=== PATIENT | female | born 1980 | race Caucasian/White ===

== ENCOUNTER 2016-09-10 19:31 | Emergency (ER) | payer BC, OTHER ==
[2016-09-10 19:38] VITALS: BP 127/105
[2016-09-10] MEDS ORDERED: HYDROmorphone 1 MG/ML Syringe IVPUSH ONE ×2 (19:38→20:03)
[2016-09-10] MEDS ORDERED: Ondansetron 4 MG/2 ML SDV IVPUSH ONE (19:38)
[2016-09-10] MEDS ORDERED: Ketorolac 30 MG/ML SDV IVPUSH ONE (19:38)
--- NOTE | 2016-09-10 19:44 | EDM.PDOC ---
ED HPI GENERAL MEDICAL PROBLEM - General Chief Complaint: Back Pain or Injury Stated Complaint: PAIN Time Seen by Provider: 09/10/16 19:33 Source of Information: Reports: Patient History Limitations: Reports: No Limitations - History of Present Illness INITIAL COMMENTS - FREE TEXT/NARRATIVE: This is a 36-year-old female. She had sudden onset of left flank pain about one hour prior to coming to the ER. She denies any nausea or vomiting no diarrhea. No recent history of urinary symptoms no blood in her urine. She describes the pain as being in the left flank radiating all the way down into her pelvis and she has the urge to urinate but she doesn't seem to be able to. The pain is been very severe and has incapacitated her. She has no history of kidney stones she has no history of diverticulitis. She denies any recent illnesses fever chills cough or congestion. 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 Hematologic History: Reports: None Immunologic History: Reports: None Oncologic (Cancer) History: Reports: None Dermatologic History: Reports: None - Past Surgical History HEENT Surgical History: Reports: Oral Surgery, Other (See Below) Musculoskeletal Surgical History: Reports: Other (See Below) Social & Family History - Tobacco Use Smoking Status *Q: Current Every Day Smoker Years of Tobacco use: 5 Packs/Tins Daily: 0.5 - Recreational Drug Use Recreational Drug Use: No Drug Use in Last 12 Months: No ED ROS GENERAL - Review of Systems Review Of Systems: See Below Constitutional: Denies: Fever, Chills HEENT: Reports: No Symptoms Respiratory: Reports: No Symptoms Cardiovascular: Reports: No Symptoms Endocrine: Reports: No Symptoms GI/Abdominal: Reports: Abdominal Pain. Denies: Diarrhea, Nausea, Vomiting : Reports: Flank Pain Musculoskeletal: Reports: No Symptoms Skin: Reports: No Symptoms Neurological: Reports: No Symptoms Psychiatric: Reports: No Symptoms Hematologic/Lymphatic: Reports: No Symptoms ED EXAM,LOWER BACK PAIN/INJURY - Physical Exam Exam: See Below Exam Limited By: No Limitations General Appearance: Alert, WD/WN, Moderate Distress Eye Exam: Bilateral Eye: Normal Inspection Ears: Normal External Exam Nose: Normal Inspection Throat/Mouth: Normal Inspection, Normal Lips, Normal Voice Head: Normocephalic Neck: Supple Respiratory/Chest: No Respiratory Distress, Lungs Clear, Normal Breath Sounds Cardiovascular: Regular Rate, Rhythm, No Murmur GI/Abdominal: Other (Some left flank pain going into the left lower quadrant, no masses felt no rebound noted though she is tender, no peritoneal signs noted , bowel sounds are absent in all 4 quadrants, there is no right-sided symptoms whatsoever) Back Exam: Full Range of Motion Extremities: Normal Inspection, Normal Range of Motion Neurological: Alert, Oriented x 3 Psychiatric: Anxious, Tearful Skin Exam: Warm, Dry Course - Vital Signs Last Recorded V/S: Last Vital Signs Temp 97.5 F 09/10/16 19:34 Pulse 98 09/10/16 19:34 Resp 16 09/10/16 19:34 BP 127/105 H 09/10/16 19:34 Pulse Ox 98 09/10/16 19:34 - Orders/Labs/Meds Orders: Active Orders 24 hr Category Date Time Status Abdomen Pelvis wo Cont [CT] Stat Exams 09/10/16 20:17 Taken Sodium Chloride 0.9% [Normal Saline] 1,000 ml Med 09/10/16 19:45 Active IV ASDIRECTED Sodium Chloride 0.9% [Normal Saline] 1,000 ml Med 09/10/16 21:15 Active IV ASDIRECTED Medication Orders Sodium Chloride (Normal Saline) 1,000 mls @ 1,000 mls/hr IV ASDIRECTED KAT Last Admin: 09/10/16 19:44 Dose: 1,000 mls/hr Sodium Chloride (Normal Saline) 1,000 mls @ 999 mls/hr IV ASDIRECTED [facility] Labs: Laboratory Tests 09/10/16 09/10/16 09/10/16 Range/Units 19:40 19:40 19:40 WBC 9.88 (3.98-10.04) K/mm3 RBC 4.24 (3.98-5.22) M/mm3 Hgb 13.2 (11.2-15.7) gm/L Hct 39.6 (34.1-44.9) % MCV 93.4 (79.4-94.8) fl MCH 31.1 (25.6-32.2) pg MCHC 33.3 (32.2-35.5) g/dl RDW Std Deviation 44.2 (36.4-46.3) fL Plt Count 338 (182-369) K/mm3 MPV 9.3 L (9.4-12.3) fl Neut % (Auto) 53.2 (34.0-71.1) % Lymph % (Auto) 32.8 (19.3-51.7) % [place] % (Auto) 10.8 (4.7-12.5) % Eos % (Auto) 2.7 (0.7-5.8) Baso % (Auto) 0.3 (0.1-1.2) % Neut # (Auto) 5.25 (1.56-6.13) K/mm3 Lymph # (Auto) 3.24 (1.18-3.74) K/mm3 [place] # (Auto) 1.07 H (0.24-0.36) K/mm3 Eos # (Auto) 0.27 (0.04-0.36) K/mm3 Baso # (Auto) 0.03 (0.01-0.08) K/mm3 Sodium 142 (136-145) mEq/L Potassium 3.9 (3.5-5.1) mEq/L Chloride 107 (98-107) mEq/L Carbon Dioxide 22 (21-32) mEq/L Anion Gap 16.9 H (5-15) BUN 15 (7-18) mg/dL Creatinine 1.0 (0.55-1.02) mg/dL Est Cr Clr Drug Dosing 76.36 mL/min Estimated GFR (MDRD) > 60 (>60) mL/min BUN/Creatinine Ratio 15.0 (14-18) Glucose 116 H (74-106) mg/dL Calcium 8.9 (8.5-10.1) mg/dL Total Bilirubin 0.7 (0.2-1.0) mg/dL AST 11 L (15-37) U/L ALT 18 (14-59) U/L Alkaline Phosphatase 86 (46-116) U/L Total Protein 7.6 (6.4-8.2) g/dl Albumin 3.8 (3.4-5.0) g/dl Globulin 3.8 gm/dL Albumin/Globulin Ratio 1.0 (1-2) HCG, Qual Negative (NEGATIVE) Urine Color (Yellow) Urine Appearance (Clear) Urine pH (5.0-8.0) Ur Specific [place] (1.005-1.030) Urine Protein (Negative) Urine Glucose (UA) (Negative) Urine Ketones (Negative) Urine Occult Blood (Negative) Urine Nitrite (Negative) Urine Bilirubin (Negative) Urine Urobilinogen (0.2-1.0) Ur Leukocyte Esterase (Negative) Urine RBC (0-5) /hpf Urine WBC (0-5) /hpf Ur Epithelial Cells (0-5) /hpf Urine Bacteria (FEW) /hpf Urine Mucus (FEW) /hpf 09/10/16 Range/Units 20:38 WBC (3.98-10.04) K/mm3 RBC (3.98-5.22) M/mm3 Hgb (11.2-15.7) gm/L Hct (34.1-44.9) % MCV (79.4-94.8) fl MCH (25.6-32.2) pg MCHC (32.2-35.5) g/dl RDW Std Deviation (36.4-46.3) fL Plt Count (182-369) K/mm3 MPV (9.4-12.3) fl Neut % (Auto) (34.0-71.1) % Lymph % (Auto) (19.3-51.7) % [place] % (Auto) (4.7-12.5) % Eos % (Auto) (0.7-5.8) Baso % (Auto) (0.1-1.2) % Neut # (Auto) (1.56-6.13) K/mm3 Lymph # (Auto) (1.18-3.74) K/mm3 [place] # (Auto) (0.24-0.36) K/mm3 Eos # (Auto) (0.04-0.36) K/mm3 Baso # (Auto) (0.01-0.08) K/mm3 Sodium (136-145) mEq/L Potassium (3.5-5.1) mEq/L Chloride (98-107) mEq/L Carbon Dioxide (21-32) mEq/L Anion Gap (5-15) BUN (7-18) mg/dL Creatinine (0.55-1.02) mg/dL Est Cr Clr Drug Dosing mL/min Estimated GFR (MDRD) (>60) mL/min BUN/Creatinine Ratio (14-18) Glucose (74-106) mg/dL Calcium (8.5-10.1) mg/dL Total Bilirubin (0.2-1.0) mg/dL AST (15-37) U/L ALT (14-59) U/L Alkaline Phosphatase (46-116) U/L Total Protein (6.4-8.2) g/dl Albumin (3.4-5.0) g/dl Globulin gm/dL Albumin/Globulin Ratio (1-2) HCG, Qual (NEGATIVE) Urine Color Yellow (Yellow) Urine Appearance Slt cloudy H (Clear) Urine pH 6.0 (5.0-8.0) Ur Specific [place] > or = 1.030 (1.005-1.030) Urine Protein 2+ H (Negative) Urine Glucose (UA) Negative (Negative) Urine Ketones Negative (Negative) Urine Occult Blood 3+ H (Negative) Urine Nitrite Negative (Negative) Urine Bilirubin Negative (Negative) Urine Urobilinogen 0.2 (0.2-1.0) Ur Leukocyte Esterase Negative (Negative) Urine RBC >100 H (0-5) /hpf Urine WBC 0-5 (0-5) /hpf Ur Epithelial Cells 5-10 H (0-5) /hpf Urine Bacteria Moderate H (FEW) /hpf Urine Mucus Moderate H (FEW) /hpf Meds: Medications Generic Name Dose Route Start Last Admin Trade Name Freq PRN Reason Stop Dose Admin Sodium Chloride 1,000 mls @ 1,000 mls/hr 09/10/16 19:45 09/10/16 19:44 Normal Saline IV 1,000 mls/hr ASDIRECTED KAT Administration Sodium Chloride 1,000 mls @ 999 mls/hr 09/10/16 21:15 Normal Saline IV ASDIRECTED KAT Discontinued Medications Generic Name Dose Route Start Last Admin Trade Name Freq PRN Reason Stop Dose Admin Hydromorphone HCl 1 mg 09/10/16 19:38 09/10/16 19:45 Dilaudid IVPUSH 09/10/16 19:39 1 mg ONETIME ONE Administration Hydromorphone HCl 1 mg 09/10/16 20:03 09/10/16 20:08 Dilaudid IVPUSH 09/10/16 20:04 1 mg ONETIME ONE Administration Ketorolac Tromethamine 30 mg 09/10/16 19:38 09/10/16 19:46 Toradol IVPUSH 09/10/16 19:39 30 mg ONETIME ONE Administration Ondansetron HCl 4 mg 09/10/16 19:38 09/10/16 19:44 Zofran IVPUSH 09/10/16 19:39 4 mg ONETIME ONE Administration - Radiology Interpretation Free Text/Narrative:: ED scan of the abdomen shows a 6 mm stone at the ureteral vesicle junction with hydroureter on the left side. - Re-Assessments/Exams Free Text/Narrative Re-Assessment/Exam: 09/10/16 22:00 Spoke to the patient regarding her lab results and CT scan results. I've arranged for her to call Dr. Jorge Johnson on Monday to arrange for appointment and be seen in [place] for possible extraction of the stone if it doesn't pass on its own. Departure - Departure Time of Disposition: 22:00 Disposition: Home, Self-Care 01 Condition: Good Clinical Impression: Left ureteral stone, Renal colic on left side - Discharge Information Prescriptions: Ondansetron [Zofran ODT] 4 mg PO Q6H PRN #15 tab.dis PRN Reason: Nausea oxyCODONE HCl/Acetaminophen [Percocet 5-325 mg Tablet] 1 each PO Q6H PRN #15 tablet PRN Reason: Pain Forms: ED Department Discharge Additional Instructions: Continue to drink lots of fluids. Avoid tea and coffee, take the medicine for pain and nausea as needed, if the pain gets to be excruciating and the medicines aren't helping return to the ER, called Dr. Jorge Johnson's office on Monday he has urinated name and the situation with his quality assurance monitor chassis service, his number is [phone], return to this ER as needed - My Orders Last 24 Hours: My Active Orders 09/10/16 19:45 Sodium Chloride 0.9% [Normal Saline] 1,000 ml IV ASDIRECTED 09/10/16 20:17 Abdomen Pelvis wo Cont [CT] Stat 09/10/16 21:15 Sodium Chloride 0.9% [Normal Saline] 1,000 ml IV ASDIRECTED - Assessment/Plan Last 24 Hours: My Active Orders 09/10/16 19:45 Sodium Chloride 0.9% [Normal Saline] 1,000 ml IV ASDIRECTED 09/10/16 20:17 Abdomen Pelvis wo Cont [CT] Stat 09/10/16 21:15 Sodium Chloride 0.9% [Normal Saline] 1,000 ml IV ASDIRECTED
[2016-09-10] MEDS ORDERED: Sodium Chloride 0.9% 1,000 ML IV SCH ×2 (19:45→21:15)
--- NOTE | 2016-09-12 08:10 | CT ---
CT abdomen and pelvis Technique: Multiple axial sections were obtained from above the kidneys inferiorly to the pubic symphysis. Intravenous and oral contrast was not utilized. Study has been performed as a ureteral stone protocol. Comparison: No previous abdominal imaging. Findings: Kidneys show no abnormal calcifications. Left kidney shows mildly dilated ureter. This is due to an obstructing 6 mm stone within the distal left ureter slightly proximal to the UVJ. No other abnormal calcifications are seen along the course of the ureters. Visualized portions of the noncontrast liver and spleen appear unremarkable. Adrenal glands show no nodule. Gallbladder shows no calcified gallstones. Pancreas appears within normal limits for noncontrast exam. Aorta shows no aneurysmal dilatation. No retroperitoneal adenopathy or mesenteric abnormalities are seen. Appendix is seen which appears normal. No pelvic mass or adenopathy is seen. No free fluid or inflammatory change is identified. No bowel dilatation is seen. Mild increased stool is noted within the colon. Bone window settings were reviewed which appear within normal limits for the patient's age. Impression: 1. Mild left-sided ureteral dilatation secondary to an obstructing stone within the distal left ureter measuring approximately 6 mm and located slightly proximal to the UVJ. No abnormal calcifications are seen within the kidneys. 2. Mild increased stool is noted within the colon. 3. Other normal findings as described above Diagnostic code #3 Agree with preliminary report issued by [employer] ([employer] report dictated on 09/10/16, 10:07 PM Central Time)
== END 2016-09-10 22:46 | disposition home or self-care (01) ==
LOC: JD.ED 19:31
DX: N20.1 Calculus of ureter (principal); N23 Unspecified renal colic; G43.909 Migraine, unspecified, not intractable, without status migrainosus; E66.9 Obesity, unspecified; F17.210 Nicotine dependence, cigarettes, uncomplicated; Z68.31 Body mass index [BMI] 31.0-31.9, adult
CPT/HCPCS: 36415; 74176; 80053; 81001; 84703; 85025; 96361; 96374; 96375; 99284; J1170; J1885; J2405; J7040

== ENCOUNTER 2016-09-11 09:43 | Inpatient (IN) | payer BC ==
[2016-09-11] MEDS ORDERED: Ketorolac 30 MG/ML SDV IVPUSH ONE (10:18)
[2016-09-11] MEDS ORDERED: HYDROmorphone 1 MG/ML Syringe IVPUSH ONE (10:18)
[2016-09-11] MEDS ORDERED: Ondansetron 4 MG/2 ML SDV IVPUSH ONE (10:18)
[2016-09-11] MEDS ORDERED: Sodium Chloride 0.9% 1,000 ML IV ONE ×2 (10:18→11:53)
[2016-09-11] MEDS ORDERED: LORazepam 2 MG/ML MDV IVPUSH ONE (10:27)
--- NOTE | 2016-09-11 10:51 | EDM.PDOC ---
ED HPI GENERAL MEDICAL PROBLEM - General Chief Complaint: Genitourinary Problem Stated Complaint: POSS. KIDNEY STONE Time Seen by Provider: 09/11/16 09:49 Source of Information: Reports: Patient History Limitations: Reports: No Limitations - History of Present Illness INITIAL COMMENTS - FREE TEXT/NARRATIVE: The patient is a 36-year-old female who presents with severe left flank and abdominal pain. She was in the emergency department last night with similar pain and at that time was diagnosed with a 6 mm UVJ renal stone. She was discharged with Percocet and Zofran. She states that she's had severe pain all night. States the Percocet has not been helping. She last took Percocet at approximately 8:00 this morning. One episode of vomiting last night. States pain is in the left flank and left lower abdomen, sharp, constant, very severe, no relieving factors. States that she had been urinating but currently feels unable to urinate. Denies hematuria or pain with urination. No fever. No additional complaint. States that she was unable to sleep all night due to the severity of her pain. 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 Hematologic History: Reports: None Immunologic History: Reports: None Oncologic (Cancer) History: Reports: None Dermatologic History: Reports: None - Past Surgical History Head Surgeries/Procedures: Reports: None HEENT Surgical History: Reports: Oral Surgery, Other (See Below) Musculoskeletal Surgical History: Reports: Other (See Below) Social & Family History - Family History Family Medical History: Noncontributory - Tobacco Use Smoking Status *Q: Current Every Day Smoker Years of Tobacco use: 15 Packs/Tins Daily: 0.5 - Caffeine Use Caffeine Use: Reports: None - Recreational Drug Use Recreational Drug Use: No Drug Use in Last 12 Months: No ED ROS GENERAL - Review of Systems Review Of Systems: See Below Constitutional: Denies: Fever HEENT: Reports: No Symptoms Respiratory: Denies: Shortness of Breath Cardiovascular: Reports: No Symptoms Endocrine: Reports: No Symptoms GI/Abdominal: Reports: Abdominal Pain : Reports: Flank Pain Musculoskeletal: Reports: No Symptoms Skin: Reports: No Symptoms Neurological: Reports: No Symptoms Psychiatric: Reports: No Symptoms ED EXAM, RENAL/ - Physical Exam Exam: See Below Exam Limited By: No Limitations General Appearance: Alert, Anxious, Severe Distress Eye Exam: Bilateral Eye: Normal Inspection Ears: Normal External Exam Nose: Normal Inspection Throat/Mouth: Normal Inspection, Normal Voice, No Airway Compromise Head: Atraumatic, Normocephalic Neck: Normal Inspection, Supple, Non-Tender, Full Range of Motion Respiratory/Chest: No Respiratory Distress, Lungs Clear, Normal Breath Sounds, No Accessory Muscle Use, Chest Non-Tender Cardiovascular: Normal Peripheral Pulses, Regular Rate, Rhythm, No Murmur GI/Abdominal: Soft, No Distention, Other (Left lower quadrant tenderness, no rebound or guarding) Back Exam: Normal Inspection, CVA Tenderness (L). No: CVA Tenderness (R) Extremities: Normal Inspection Neurological: Alert, Oriented, Normal Cognition, No Motor/Sensory Deficits Psychiatric: Normal Affect, Normal Mood Skin Exam: Warm, Dry, Intact, Normal Color, No Rash Course - Vital Signs Last Recorded V/S: Last Vital Signs Temp 36.8 C 09/11/16 09:48 Pulse 78 09/11/16 09:48 Resp BP Pulse Ox 99 09/11/16 09:48 - Orders/Labs/Meds Orders: Active Orders 24 hr Category Date Time Status HYDROmorphone [Dilaudid] Med 09/11/16 11:11 Active 1 mg IVPUSH Q1H PRN Medication Orders Hydromorphone HCl (Dilaudid) 1 mg IVPUSH Q1H PRN PRN Reason: Pain Labs: Laboratory Tests 09/11/16 09/11/16 09/11/16 Range/Units 10:40 10:40 12:40 WBC 7.10 (3.98-10.04) K/mm3 RBC 4.00 (3.98-5.22) M/mm3 Hgb 12.1 (11.2-15.7) gm/L Hct 37.7 (34.1-44.9) % MCV 94.3 (79.4-94.8) fl MCH 30.3 (25.6-32.2) pg MCHC 32.1 L (32.2-35.5) g/dl RDW Std Deviation 44.3 (36.4-46.3) fL Plt Count 299 (182-369) K/mm3 MPV 9.6 (9.4-12.3) fl Neut % (Auto) 60.3 (34.0-71.1) % Lymph % (Auto) 27.9 (19.3-51.7) % [place] % (Auto) 9.9 (4.7-12.5) % Eos % (Auto) 1.5 (0.7-5.8) Baso % (Auto) 0.3 (0.1-1.2) % Neut # (Auto) 4.28 (1.56-6.13) K/mm3 Lymph # (Auto) 1.98 (1.18-3.74) K/mm3 [place] # (Auto) 0.70 H (0.24-0.36) K/mm3 Eos # (Auto) 0.11 (0.04-0.36) K/mm3 Baso # (Auto) 0.02 (0.01-0.08) K/mm3 Sodium 141 (136-145) mEq/L Potassium 3.8 (3.5-5.1) mEq/L Chloride 110 H (98-107) mEq/L Carbon Dioxide 21 (21-32) mEq/L Anion Gap 13.8 (5-15) BUN 16 (7-18) mg/dL Creatinine 1.0 (0.55-1.02) mg/dL Est Cr Clr Drug Dosing TNP Estimated GFR (MDRD) > 60 (>60) mL/min BUN/Creatinine Ratio 16.0 (14-18) Glucose 87 (74-106) mg/dL Calcium 8.4 L (8.5-10.1) mg/dL Total Bilirubin 1.0 (0.2-1.0) mg/dL AST 13 L (15-37) U/L ALT 17 (14-59) U/L Alkaline Phosphatase 71 (46-116) U/L Total Protein 6.7 (6.4-8.2) g/dl Albumin 3.3 L (3.4-5.0) g/dl Globulin 3.4 gm/dL Albumin/Globulin Ratio 1.0 (1-2) Urine Color Yellow (Yellow) Urine Appearance Slt cloudy H (Clear) Urine pH 5.5 (5.0-8.0) Ur Specific [place] > or = 1.030 (1.005-1.030) Urine Protein Negative (Negative) Urine Glucose (UA) Negative (Negative) Urine Ketones Negative (Negative) Urine Occult Blood 2+ H (Negative) Urine Nitrite Negative (Negative) Urine Bilirubin Negative (Negative) Urine Urobilinogen 0.2 (0.2-1.0) Ur Leukocyte Esterase Trace H (Negative) Urine RBC 10-20 H (0-5) /hpf Urine WBC 5-10 H (0-5) /hpf Ur Epithelial Cells 0-5 (0-5) /hpf Amorphous Sediment Moderate H (NOT SEEN) /hpf Urine Bacteria Few (FEW) /hpf Urine Mucus Few (FEW) /hpf Meds: Medications Generic Name Dose Route Start Last Admin Trade Name Freq PRN Reason Stop Dose Admin Hydromorphone HCl 1 mg 09/11/16 11:11 Dilaudid IVPUSH Q1H PRN Pain Discontinued Medications Generic Name Dose Route Start Last Admin Trade Name Freq PRN Reason Stop Dose Admin Hydromorphone HCl 1 mg 09/11/16 10:18 09/11/16 10:28 Dilaudid IVPUSH 09/11/16 10:19 1 mg ONETIME ONE Administration Sodium Chloride 1,000 mls @ 1,000 mls/hr 09/11/16 10:18 09/11/16 10:26 Normal Saline IV 09/11/16 11:17 1,000 mls/hr ONETIME ONE Administration Sodium Chloride 1,000 mls @ 999 mls/hr 09/11/16 11:53 09/11/16 12:05 Normal Saline IV 09/11/16 12:53 999 mls/hr ONETIME ONE Administration Ketorolac Tromethamine 30 mg 09/11/16 10:18 09/11/16 10:27 Toradol IVPUSH 09/11/16 10:19 30 mg ONETIME ONE Administration Lorazepam 1 mg 09/11/16 10:27 09/11/16 10:34 Ativan IVPUSH 09/11/16 10:28 1 mg ONETIME ONE Administration Ondansetron HCl 4 mg 09/11/16 10:18 09/11/16 10:26 Zofran IVPUSH 09/11/16 10:19 4 mg ONETIME ONE Administration Pneumococcal Polyvalent Vaccine 0.5 ml 09/11/16 14:38 Pneumovax 23 IM 09/11/16 14:39 .ONCE ONE - Re-Assessments/Exams Free Text/Narrative Re-Assessment/Exam: 09/11/16 11:32 Feeling better after dilaudid, toradol, and ativan, but still has significant pain. Requesting more meds but has some respiratory depression with SpO2 86 - 90, will monitor. Awaiting urine sample, she feels like she can urinate now. 09/11/16 13:19 Patient voided 100cc. [place] strong need to void more. Nurses placed hughes, output very small. UA returns and shows high specific gravity. Doubt actual urinary obstruction, patient more likely quite dehydrated. She needs to be admitted for pain control, nausea control, and hydration. No evidence of infection on UA. Renal function normal. So no indication for urological intervention over the weekend. We don't have urology here but we can hydrate and control her symptoms. Patient would prefer to be admitted here if possible. I explained that she may need to be transferred at some point if there is need for urological intervention. She understood. Discussed with Dr. Mora who agrees to admit the patient. Departure - Departure Time of Disposition: 13:26 Disposition: Admitted As Inpatient 67 Clinical Impression: Ureteral stone, Moderate dehydration Vomiting Qualifiers: Vomiting type: unspecified Vomiting Intractability: intractable Nausea presence : with nausea Qualified Code(s): R11.2 - Nausea with vomiting, unspecified Abdominal pain Qualifiers: Abdominal location: left lower quadrant Qualified Code(s): R10.32 - Left lower quadrant pain - Discharge Information - My Orders Last 24 Hours: My Active Orders 09/11/16 11:11 HYDROmorphone [Dilaudid] 1 mg IVPUSH Q1H PRN - Assessment/Plan Last 24 Hours: My Active Orders 09/11/16 11:11 HYDROmorphone [Dilaudid] 1 mg IVPUSH Q1H PRN
[2016-09-11] MEDS ORDERED: HYDROmorphone 1 MG/ML Syringe IVPUSH PRN (11:11)
[2016-09-11] MEDS ORDERED: Pneumococcal Polyvalent-23 Vaccine 0.5 ML SDV IM ONE (14:38)
[2016-09-11] MEDS ORDERED: Ondansetron 4 MG/2 ML SDV IVPUSH PRN (15:08)
[2016-09-11] MEDS ORDERED: Promethazine 12.5 MG in Sodium Chloride 0.9% 50 ML IV PRN (15:09)
[2016-09-11] MEDS ORDERED: Temazepam 15 MG Cap PO PRN (15:16)
--- NOTE | 2016-09-11 15:30 | PCM.HP ---
H&P History of Present Illness - General Date of Service: 09/11/16 Admit Problem/Dx: Admission Diagnosis/Problem Admission Diagnosis/Problem Dehydration Source of Information: Patient, Family, Provider History Limitations: Reports: No Limitations - History of Present Illness Initial Comments - Free Text/Narative: 33 year old female who was seen at 1900 hour last night was diagnosed with renal calculus at the left ureteral vesicle junction with subsequent hydroureter. She admits to sharp pelvis pain and back pain, left flankHas a sense of urinary urgency. Nausea without vomiting and a loss of appetite. Has never had kidney stones; had minimal relief with percocet prescribed last night. Has a sense of urinary urgency. A hughes cath has been placed in the ED , the patient request removal. Pyridium will be used for dysuria and frequency. Originally the patient was to have called urologist, Dr Jorge Johnson. This will be arranged at the time of DC. Onset of Symptoms: Reports: Sudden Symptom Onset Date: 09/10/16 Duration of Symptoms: Reports: Hour(s):, Getting Worse Location: Reports: Abdomen, Back Quality: Reports: Same as Previous Episode, Sharp Severity: Moderate Improves with: Reports: Medication Worsens with: Reports: None Associated Symptoms: Reports: Loss of Appetite, Malaise, Nausea/Vomiting Left Flank Pain Score (Numeric/FACES): 10 - Related Data Allergies/Adverse Reactions: Allergies Allergy/AdvReac Type Severity Reaction Status Date / Time No Known Allergies Allergy Verified 09/11/16 14:39 Home Medications: Home Meds Ondansetron [Zofran ODT] 4 mg PO Q6H PRN #15 tab.dis 09/10/16 [Rx] oxyCODONE HCl/Acetaminophen [Percocet 5-325 mg Tablet] 1 - 2 each PO Q6H PRN [History] Past Medical History HEENT History: Reports: None Cardiovascular History: Reports: None Respiratory History: Reports: None Gastrointestinal History: Reports: None Genitourinary History: Reports: Renal Calculus 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 Hematologic History: Reports: None Immunologic History: Reports: None Oncologic (Cancer) History: Reports: None Dermatologic History: Reports: None - Infectious Disease History Infectious Disease History: Reports: Chicken Pox - Past Surgical History Head Surgeries/Procedures: Reports: None HEENT Surgical History: Reports: Oral Surgery, Other (See Below) Musculoskeletal Surgical History: Reports: Other (See Below) Social & Family History - Family History Family Medical History: Noncontributory - Tobacco Use Smoking Status *Q: Current Every Day Smoker Years of Tobacco use: 15 Packs/Tins Daily: 0.5 Used Tobacco, but Quit: No Second Hand Smoke Exposure: Yes - Caffeine Use Caffeine Use: Reports: None - Recreational Drug Use Recreational Drug Use: No Drug Use in Last 12 Months: No H&P Review of Systems - Review of Systems: Review Of Systems: See Below General: Reports: Malaise, Weakness HEENT: Reports: No Symptoms Pulmonary: Reports: No Symptoms Cardiovascular: Reports: No Symptoms Gastrointestinal: Reports: Abdominal Pain, Decreased Appetite Genitourinary: Reports: Frequency Musculoskeletal: Reports: Back Pain Skin: Reports: No Symptoms Psychiatric: Reports: No Symptoms Neurological: Reports: No Symptoms Hematologic/Lymphatic: Reports: No Symptoms Immunologic: Reports: No Symptoms Exam - Exam Exam: See Below - Vital Signs Vital Signs: Last Vital Signs Temp 36.8 C 09/11/16 09:48 Pulse 78 09/11/16 09:48 Resp BP Pulse Ox 99 09/11/16 09:48 Weight: 90.718 kg - Exam Quality Assessment: DVT Prophylaxis General: Alert, Oriented, Cooperative, Mild Distress HEENT: Conjunctiva Clear, Nares Patent, Normal Nasal Septum, Pupils Equal, Pupils Reactive, PERRLA Neck: Supple, Trachea Midline Lungs: Clear to Auscultation, Normal Respiratory Effort Cardiovascular: Regular Rate, Regular Rhythm Abdomen: Normal Bowel Sounds, Soft (Female) Exam: Deferred Rectal (Female) Exam: Deferred Back Exam: Normal Inspection Extremities: Normal Inspection Skin: Warm Neurological: Cranial Nerves Intact, Normal Gait, Normal Speech Neuro Extensive - Mental Status: Alert, Oriented x3, Normal Mood/Affect, Normal Cognition, Memory Intact Neuro Extensive - Motor, Sensory, Reflexes: CN II-XII Intact Psychiatric: Alert, Normal Affect, Normal Mood - Patient Data Result Diagrams: 09/11/16 10:40 09/11/16 10:40 *Q Meaningful Use (ADM) - VTE *Q VTE Criteria *Q: - Stroke *Q Stroke Criteria *Q: - AMI *Q AMI Criteria *Q: - Problem List (1) Abdominal pain SNOMED Code(s): 91048348 ICD Code: R10.9 - UNSPECIFIED ABDOMINAL PAIN Status: Acute Current Visit : Yes Qualifiers: Abdominal location: left lower quadrant Qualified Code(s): R10.32 - Left lower quadrant pain (2) Moderate dehydration SNOMED Code(s): 3141286530569 ICD Code: E86.0 - DEHYDRATION Status: Acute Current Visit: Yes (3) Ureteral stone SNOMED Code(s): 73013660 ICD Code: N20.1 - CALCULUS OF URETER Status: Acute Current Visit: Yes (4) Vomiting SNOMED Code(s): 521220196 ICD Code: R11.10 - VOMITING, UNSPECIFIED Status: Acute Current Visit: Yes Qualifiers: Vomiting type: unspecified Vomiting Intractability: intractable Nausea presence: with nausea Qualified Code(s): R11.2 - Nausea with vomiting, unspecified (5) Left ureteral stone SNOMED Code(s): 31538435 ICD Code: N20.1 - CALCULUS OF URETER Status: Acute Current Visit: No (6) Renal colic on left side SNOMED Code(s): 7733884 ICD Code: N23 - UNSPECIFIED RENAL COLIC Status: Acute Current Visit: No Problem List Initiated/Reviewed/Updated: Yes Orders Last 24hrs: Active Orders 24 hr Category Date Time Status Activity as Tolerated [RC] .Routine Care 09/11/16 15:05 Ordered Antiembolic Devices [RC] PER UNIT ROUTINE Care 09/11/16 15:06 Ordered Hughes Catheter Insertion [Insert Urinary Catheter] [OM. Care 09/11/16 15:00 Ordered PC] Q24H Strain Urine [RC] ASDIRECTED Care 09/11/16 15:04 Ordered Urinary Catheter Assessment [RC] ASDIRECTED Care 09/11/16 14:46 Inactive Vital Signs [RC] PER UNIT ROUTINE Care 09/11/16 15:04 Ordered Consult to [employer] Software Development Engineer [CONS] Routine Cons 09/11/16 15:05 Ordered Clear Liquid Diet [DIET] Diet 09/11/16 Lunch Ordered BASIC METABOLIC PANEL,BMP [CHEM] DAILY Lab 09/12/16 05:00 Ordered BASIC METABOLIC PANEL,BMP [CHEM] DAILY Lab 09/13/16 05:00 Ordered BASIC METABOLIC PANEL,BMP [CHEM] DAILY Lab 09/14/16 05:00 Ordered BASIC METABOLIC PANEL,BMP [CHEM] DAILY Lab 09/15/16 05:00 Ordered CBC WITH AUTO DIFF [HEME] DAILY Lab 09/12/16 05:00 Ordered CBC WITH AUTO DIFF [HEME] DAILY Lab 09/13/16 05:00 Ordered CBC WITH AUTO DIFF [HEME] DAILY Lab 09/14/16 05:00 Ordered CBC WITH AUTO DIFF [HEME] DAILY Lab 09/15/16 05:00 Ordered CRP [C-REACTIVE PROTEIN] [CHEM] Routine Lab 09/12/16 05:00 Ordered Acetaminophen/HYDROcodone [[place] 325-5 MG] Med 09/11/16 15:11 Ordered 1 tab PO Q6H PRN Enoxaparin [Lovenox] Med 09/12/16 09:00 Ordered 40 mg SUBCUT DAILY Ketorolac [Toradol] Med 09/11/16 16:00 Ordered 30 mg IVPUSH Q6H Morphine Med 09/11/16 15:10 Ordered 2 mg IVPUSH Q4H PRN Ondansetron [Zofran] Med 09/11/16 15:08 Ordered 4 mg IVPUSH Q8H PRN Phenazopyridine [Urinary Pain Relief] Med 09/11/16 19:00 Ordered 95 mg PO TIDPC Promethazine [Phenergan] 12.5 mg Med 09/11/16 15:09 Ordered Sodium Chloride 0.9% [Normal Saline] 50 ml IV Q6H Temazepam [Restoril] Med 09/11/16 15:16 Ordered 15 mg PO BEDTIME PRN MICHAEL Hose [Antiembolic Hose] [OM.PC] Routine Oth 09/11/16 15:06 Ordered Code Status [Resuscitation Status] Routine Resus Stat 09/11/16 15:04 Ordered Medication Orders Hydrocodone Bitart/Acetaminophen ([place] 325-5 Mg) 1 tab PO Q6H PRN PRN Reason: Pain Enoxaparin Sodium (Lovenox) 40 mg SUBCUT DAILY [facility] Promethazine HCl 12.5 mg/ (Sodium Chloride) 50.5 mls @ 100 mls/hr IV Q6H PRN PRN Reason: Nausea/Vomiting Ketorolac Tromethamine (Toradol) 30 mg IVPUSH Q6H [facility] Stop: 09/12/16 23:01 Morphine Sulfate (Morphine) 2 mg IVPUSH Q4H PRN PRN Reason: Pain (moderate 4-6) Ondansetron HCl (Zofran) 4 mg IVPUSH Q8H PRN PRN Reason: Nausea/Vomiting Phenazopyridine HCl (Urinary Pain Relief) 95 mg PO TIDPC KAT Temazepam (Restoril) 15 mg PO BEDTIME PRN PRN Reason: Insomnia Assessment/Plan Comment:: Impression: Afebrile without prior renal calculus, Left flank pain, renal stone at left UVJ, ~ 6 mm with hydroureter Failed outpatient management Chronic Migraine Obesity Nicotine dependence Plan: IVF Pain meds Antiemetic Pyridium Strain urine DC hughes DVT/GI prophylaxis
[2016-09-11] MEDS: Morphine 2 MG/ML Syringe IVPUSH PRN (15:31)
[2016-09-11] MEDS ORDERED: LORazepam 2 MG/ML MDV IVPUSH PRN (15:54)
[2016-09-11] MEDS: Ketorolac 30 MG/ML SDV IVPUSH SCH ×2 (16:06→22:20)
[2016-09-11] MEDS: Nicotine 21 MG/24 Hr Patch TRDERM SCH (16:21)
[2016-09-11] MEDS: Phenazopyridine 95 MG Tab PO SCH (18:00)
[2016-09-11] MEDS: Acetaminophen/HYDROcodone 325-5 MG Tab PO PRN (18:18)
[2016-09-11] MEDS: Docusate Sodium 100 MG Cap PO SCH (22:20)
[2016-09-12] MEDS: Morphine 2 MG/ML Syringe IVPUSH PRN (02:53)
[2016-09-12] MEDS: Ketorolac 30 MG/ML SDV IVPUSH SCH ×2 (06:03→10:05)
--- NOTE | 2016-09-12 08:24 | PCM.PN ---
<Henny Diaz M - Last Filed: 09/12/16 10:04> - General Info Date of Service: 09/12/16 Admission Dx/Problem (Free Text): Admission Diagnosis/Problem Admission Diagnosis/Problem Renal stone "Makeda" is seen this morning, rested fairly well last night. Pain is "up and down", to left flank radiating around into left pelvic and bladder area, in "spasms". When pain medication starts to wear off is up to 8-9 again. Nausea is improved but returns with pain. She has no appetite. Voiding is improved and "not so urgent" and "less pressure" with voiding. Afebrile overnight. No prior hx of renal stones. Functional Status: Reports: pain controlled, tolerating diet (clear liquid diet) , ambulating, urinating - Review of Systems General: Denies: Fever HEENT: Reports: no symptoms Pulmonary: Reports: no symptoms Cardiovascular: Reports: No Symptoms Gastrointestinal: Reports: Abdominal pain (left pelvic into groin in waves/ spasms), Other (BM yesterday). Denies: Diarrhea, Nausea, Vomiting Genitourinary: Reports: frequency, urgency, flank pain (improved). Denies: burning Musculoskeletal: Reports: back pain (left ) Neurological: Reports: No Symptoms Psychiatric: Reports: no symptoms - Patient Data Vitals - most recent: Last Vital Signs Temp 98.1 F 09/12/16 07:56 Pulse 65 09/12/16 08:00 Resp 14 09/12/16 07:56 BP 116/76 09/12/16 07:56 Pulse Ox 98 09/12/16 07:56 Weight - most recent: 90.492 kg I&O - last 24 hours: Intake & Output 09/11/16 09/12/16 09/12/16 22:59 06:59 14:59 Intake Total 460 800 Output Total 275 675 Balance 185 125 Lab Results last 24 hrs: Laboratory Results - last 24 hr 09/12/16 09/12/16 Range/Units 05:46 05:46 WBC 6.93 (3.98-10.04) K/mm3 RBC 3.66 L (3.98-5.22) M/mm3 Hgb 11.1 L (11.2-15.7) gm/L Hct 35.2 (34.1-44.9) % MCV 96.2 H (79.4-94.8) fl MCH 30.3 (25.6-32.2) pg MCHC 31.5 L (32.2-35.5) g/dl RDW Std Deviation 45.1 (36.4-46.3) fL Plt Count 237 (182-369) K/mm3 MPV 10.0 (9.4-12.3) fl Neut % (Auto) 58.0 (34.0-71.1) % Lymph % (Auto) 27.3 (19.3-51.7) % Woodward % (Auto) 12.4 (4.7-12.5) % Eos % (Auto) 1.9 (0.7-5.8) Baso % (Auto) 0.3 (0.1-1.2) % Neut # (Auto) 4.02 (1.56-6.13) K/mm3 Lymph # (Auto) 1.89 (1.18-3.74) K/mm3 Woodward # (Auto) 0.86 H (0.24-0.36) K/mm3 Eos # (Auto) 0.13 (0.04-0.36) K/mm3 Baso # (Auto) 0.02 (0.01-0.08) K/mm3 Sodium 142 (136-145) mEq/L Potassium 3.7 (3.5-5.1) mEq/L Chloride 110 H (98-107) mEq/L Carbon Dioxide 23 (21-32) mEq/L Anion Gap 12.7 (5-15) BUN 13 (7-18) mg/dL Creatinine 0.8 (0.55-1.02) mg/dL Est Cr Clr Drug Dosing 95.45 mL/min Estimated GFR (MDRD) > 60 (>60) mL/min BUN/Creatinine Ratio 16.3 (14-18) Glucose 80 (74-106) mg/dL Calcium 8.0 L (8.5-10.1) mg/dL C-Reactive Protein 1.2 H* (<1.0) mg/dL Med Orders - Current: Current Medications Hydrocodone Bitart/Acetaminophen ([place] 325-5 Mg) 1 tab PO Q6H PRN PRN Reason: Pain Last Admin: 09/11/16 18:18 Dose: 1 tab Docusate Sodium (Colace) 100 mg PO BID [facility] Last Admin: 09/11/16 22:20 Dose: 100 mg Enoxaparin Sodium (Lovenox) 40 mg SUBCUT DAILY [facility] Promethazine HCl 12.5 mg/ (Sodium Chloride) 50.5 mls @ 100 mls/hr IV Q6H PRN PRN Reason: Nausea/Vomiting Ketorolac Tromethamine (Toradol) 30 mg IVPUSH Q6H [facility] Stop: 09/12/16 23:01 Last Admin: 09/12/16 06:03 Dose: 30 mg Lorazepam (Ativan) 1 mg IVPUSH Q12H PRN PRN Reason: Anxiety Miscellaneous Information (Remove Patch) 0 ea TRDERM DAILY [facility] Morphine Sulfate (Morphine) 2 mg IVPUSH Q4H PRN PRN Reason: Pain (moderate 4-6) Last Admin: 09/12/16 02:53 Dose: 2 mg Nicotine (Habitrol) 21 mg TRDERM DAILY [facility] Last Admin: 09/11/16 16:21 Dose: Not Given Ondansetron HCl (Zofran) 4 mg IVPUSH Q8H PRN PRN Reason: Nausea/Vomiting Phenazopyridine HCl (Urinary Pain Relief) 95 mg PO TIDPC [facility] Last Admin: 09/11/16 18:00 Dose: 95 mg Temazepam (Restoril) 15 mg PO BEDTIME PRN PRN Reason: Insomnia Discontinued Medications Hydromorphone HCl (Dilaudid) 1 mg IVPUSH ONETIME ONE Stop: 09/11/16 10:19 Last Admin: 09/11/16 10:28 Dose: 1 mg Hydromorphone HCl (Dilaudid) 1 mg IVPUSH Q1H PRN PRN Reason: Pain Sodium Chloride (Normal Saline) 1,000 mls @ 1,000 mls/hr IV ONETIME ONE Stop: 09/11/16 11:17 Last Admin: 09/11/16 10:26 Dose: 1,000 mls/hr Sodium Chloride (Normal Saline) 1,000 mls @ 999 mls/hr IV ONETIME ONE Stop: 09/11/16 12:53 Last Admin: 09/11/16 12:05 Dose: 999 mls/hr Ketorolac Tromethamine (Toradol) 30 mg IVPUSH ONETIME ONE Stop: 09/11/16 10:19 Last Admin: 09/11/16 10:27 Dose: 30 mg Lorazepam (Ativan) 1 mg IVPUSH ONETIME ONE Stop: 09/11/16 10:28 Last Admin: 09/11/16 10:34 Dose: 1 mg Ondansetron HCl (Zofran) 4 mg IVPUSH ONETIME ONE Stop: 09/11/16 10:19 Last Admin: 09/11/16 10:26 Dose: 4 mg Pneumococcal Polyvalent Vaccine (Pneumovax 23) 0.5 ml IM .ONCE ONE Stop: 09/11/16 14:39 - Exam Quality Assessment: DVT prophylaxis General: alert, oriented, cooperative, no acute distress HEENT: Pupils equal, Pupils reactive, EOMI, Mucous membr. moist/pink Neck: supple Lungs: Clear to auscultation, Normal respiratory effort Cardiovascular: Regular Rate, Regular Rhythm Abdomen: bowel sounds present, soft, no distension, tenderness (left mid to lower abdomen, pelvis and over bladder). No: rigidity, rebound, guarding (Female) Exam: Deferred Back Exam: Normal Inspection, CVA Tenderness (L) Extremities: no edema, calf tenderness Peripheral Pulses: 2+: Dorsalis Pedis (L), Dorsalis Pedis (R) Neurological: no new focal deficit Psy/Mental Status: alert, normal affect, normal mood - Problem List & Annotations (1) Left ureteral stone SNOMED Code(s): 18853242 Code(s): N20.1 - CALCULUS OF URETER Status: Acute Priority: High (2) Renal colic on left side SNOMED Code(s): 9655142 Code(s): N23 - UNSPECIFIED RENAL COLIC Status: Acute Priority: High (3) Moderate dehydration SNOMED Code(s): 4990105896456 Code(s): E86.0 - DEHYDRATION Status: Resolved Priority: High (4) Vomiting SNOMED Code(s): 646831423 Code(s): R11.10 - VOMITING, UNSPECIFIED Status: Resolved Priority: High Qualifiers: Vomiting type: unspecified Vomiting Intractability: intractable Nausea presence: with nausea Qualified Code(s): R11.2 - Nausea with vomiting, unspecified (5) Abdominal pain SNOMED Code(s): 84616690 Code(s): R10.9 - UNSPECIFIED ABDOMINAL PAIN Status: Acute Priority: High Qualifiers: Abdominal location: left lower quadrant Qualified Code(s): R10.32 - Left lower quadrant pain - Problem List Review Problem List Initiated/Reviewed/Updated: Yes - Plan Plan:: Impression/Plan: Left flank pain, renal stone at left UVJ, ~ 6 mm with hydroureter -Afebrile without prior hx of renal calculus, no infection at this point. Will cover with PO bactrim for prophylax. -Failed outpatient management= pain management and unable to stay hydrated d/ t vomiting -Pain control and antiemetics, pyridium, flomax -IVF -Strain urine -Patient wishing surgical removal or lithotripsy as "can't go on like this". Will call [facility] in [place] to review case for possible transfer to Urology service should they agree. Chronic: Migraine Obesity Nicotine dependence- nicotine patch Other: DVT/GI prophylaxis CM/SW for assist with DC planning Patient is full code status <Dalia Mora - Last Filed: 09/12/16 16:40> - Patient Data Vitals - most recent: Last Vital Signs Temp 36.7 C 09/12/16 07:56 Pulse 51 L 09/12/16 11:36 Resp 14 09/12/16 07:56 BP 125/74 09/12/16 11:36 Pulse Ox 97 09/12/16 11:36 I&O - last 24 hours: Intake & Output 09/12/16 09/12/16 09/12/16 06:59 14:59 22:59 Intake Total 800 1220 Output Total 675 700 Balance 125 520 Lab Results last 24 hrs: Laboratory Results - last 24 hr 09/12/16 09/12/16 Range/Units 05:46 05:46 WBC 6.93 (3.98-10.04) K/mm3 RBC 3.66 L (3.98-5.22) M/mm3 Hgb 11.1 L (11.2-15.7) gm/L Hct 35.2 (34.1-44.9) % MCV 96.2 H (79.4-94.8) fl MCH 30.3 (25.6-32.2) pg MCHC 31.5 L (32.2-35.5) g/dl RDW Std Deviation 45.1 (36.4-46.3) fL Plt Count 237 (182-369) K/mm3 MPV 10.0 (9.4-12.3) fl Neut % (Auto) 58.0 (34.0-71.1) % Lymph % (Auto) 27.3 (19.3-51.7) % Woodward % (Auto) 12.4 (4.7-12.5) % Eos % (Auto) 1.9 (0.7-5.8) Baso % (Auto) 0.3 (0.1-1.2) % Neut # (Auto) 4.02 (1.56-6.13) K/mm3 Lymph # (Auto) 1.89 (1.18-3.74) K/mm3 Woodward # (Auto) 0.86 H (0.24-0.36) K/mm3 Eos # (Auto) 0.13 (0.04-0.36) K/mm3 Baso # (Auto) 0.02 (0.01-0.08) K/mm3 Sodium 142 (136-145) mEq/L Potassium 3.7 (3.5-5.1) mEq/L Chloride 110 H (98-107) mEq/L Carbon Dioxide 23 (21-32) mEq/L Anion Gap 12.7 (5-15) BUN 13 (7-18) mg/dL Creatinine 0.8 (0.55-1.02) mg/dL Est Cr Clr Drug Dosing 95.45 mL/min Estimated GFR (MDRD) > 60 (>60) mL/min BUN/Creatinine Ratio 16.3 (14-18) Glucose 80 (74-106) mg/dL Calcium 8.0 L (8.5-10.1) mg/dL C-Reactive Protein 1.2 H* (<1.0) mg/dL Med Orders - Current: Current Medications Discontinued Medications Hydrocodone Bitart/Acetaminophen (Mont[place] 325-5 Mg) 1 tab PO Q6H PRN PRN Reason: Pain Last Admin: 09/12/16 09:14 Dose: 1 tab Docusate Sodium (Colace) 100 mg PO BID [facility] Last Admin: 09/12/16 09:04 Dose: 100 mg Enoxaparin Sodium (Lovenox) 40 mg SUBCUT DAILY [facility] Last Admin: 09/12/16 09:04 Dose: 40 mg Hydromorphone HCl (Dilaudid) 1 mg IVPUSH ONETIME ONE Stop: 09/11/16 10:19 Last Admin: 09/11/16 10:28 Dose: 1 mg Hydromorphone HCl (Dilaudid) 1 mg IVPUSH Q1H PRN PRN Reason: Pain Sodium Chloride (Normal Saline) 1,000 mls @ 1,000 mls/hr IV ONETIME ONE Stop: 09/11/16 11:17 Last Admin: 09/11/16 10:26 Dose: 1,000 mls/hr Sodium Chloride (Normal Saline) 1,000 mls @ 999 mls/hr IV ONETIME ONE Stop: 09/11/16 12:53 Last Admin: 09/11/16 12:05 Dose: 999 mls/hr Promethazine HCl 12.5 mg/ (Sodium Chloride) 50.5 mls @ 100 mls/hr IV Q6H PRN PRN Reason: Nausea/Vomiting Sodium Chloride (Normal Saline) 1,000 mls @ 125 mls/hr IV ASDIRECTED [facility] Last Admin: 09/12/16 10:04 Dose: 125 mls/hr Ketorolac Tromethamine (Toradol) 30 mg IVPUSH ONETIME ONE Stop: 09/11/16 10:19 Last Admin: 09/11/16 10:27 Dose: 30 mg Ketorolac Tromethamine (Toradol) 30 mg IVPUSH Q6H [facility] Stop: 09/12/16 23:01 Last Admin: 09/12/16 10:05 Dose: 30 mg Lorazepam (Ativan) 1 mg IVPUSH ONETIME ONE Stop: 09/11/16 10:28 Last Admin: 09/11/16 10:34 Dose: 1 mg Lorazepam (Ativan) 1 mg IVPUSH Q12H PRN PRN Reason: Anxiety Miscellaneous Information (Remove Patch) 0 ea TRDERM DAILY [facility] Last Admin: 09/12/16 09:05 Dose: Not Given Morphine Sulfate (Morphine) 2 mg IVPUSH Q4H PRN PRN Reason: Pain (moderate 4-6) Last Admin: 09/12/16 02:53 Dose: 2 mg Nicotine (Habitrol) 21 mg TRDERM DAILY [facility] Last Admin: 09/12/16 09:05 Dose: Not Given Ondansetron HCl (Zofran) 4 mg IVPUSH ONETIME ONE Stop: 09/11/16 10:19 Last Admin: 09/11/16 10:26 Dose: 4 mg Ondansetron HCl (Zofran) 4 mg IVPUSH Q8H PRN PRN Reason: Nausea/Vomiting Phenazopyridine HCl (Urinary Pain Relief) 95 mg PO TIDPC [facility] Last Admin: 09/12/16 09:06 Dose: 95 mg Pneumococcal Polyvalent Vaccine (Pneumovax 23) 0.5 ml IM .ONCE ONE Stop: 09/11/16 14:39 Last Admin: 09/12/16 11:31 Dose: Not Given Tamsulosin HCl (Flomax) 0.4 mg PO BIDPC [facility] Last Admin: 09/12/16 11:31 Dose: 0.4 mg Temazepam (Restoril) 15 mg PO BEDTIME PRN PRN Reason: Insomnia Trimethoprim/Sulfamethoxazole (Septra Ds) 1 tab PO BID [facility] Last Admin: 09/12/16 11:31 Dose: 1 tab - Problem List & Annotations (1) Abdominal pain SNOMED Code(s): 74227928 Code(s): R10.9 - UNSPECIFIED ABDOMINAL PAIN Status: Acute Priority: High Qualifiers: Abdominal location: left lower quadrant Qualified Code(s): R10.32 - Left lower quadrant pain (2) Moderate dehydration SNOMED Code(s): 3397862220657 Code(s): E86.0 - DEHYDRATION Status: Resolved Priority: High (3) Ureteral stone SNOMED Code(s): 47198217 Code(s): N20.1 - CALCULUS OF URETER Status: Acute (4) Vomiting SNOMED Code(s): 177120318 Code(s): R11.10 - VOMITING, UNSPECIFIED Status: Resolved Priority: High Qualifiers: Vomiting type: unspecified Vomiting Intractability: intractable Nausea presence: with nausea Qualified Code(s): R11.2 - Nausea with vomiting, unspecified (5) Left ureteral stone SNOMED Code(s): 01624480 Code(s): N20.1 - CALCULUS OF URETER Status: Acute Priority: High (6) Renal colic on left side SNOMED Code(s): 8854168 Code(s): N23 - UNSPECIFIED RENAL COLIC Status: Acute Priority: High - Plan Plan:: See DC summary, will be transferred to [facility] for [facility]rology care under the hospitalist service.
[2016-09-12] MEDS ORDERED: Enoxaparin 40 MG/0.4 ML Syringe SUBCUT SCH (09:00)
[2016-09-12] MEDS ORDERED: Remove Patch*NICOTINE TRDERM SCH (09:00)
[2016-09-12] MEDS: Docusate Sodium 100 MG Cap PO SCH (09:04)
[2016-09-12] MEDS: Nicotine 21 MG/24 Hr Patch TRDERM SCH (09:05)
[2016-09-12] MEDS: Phenazopyridine 95 MG Tab PO SCH (09:06)
[2016-09-12] MEDS: Acetaminophen/HYDROcodone 325-5 MG Tab PO PRN (09:14)
[2016-09-12] MEDS ORDERED: Sodium Chloride 0.9% 1,000 ML IV SCH (09:45)
[2016-09-12] MEDS ORDERED: Sulfamethoxazole/Trimethoprim 800-160 MG Tab PO SCH (11:00)
--- NOTE | 2016-09-12 11:21 | PCM.DCSUM1 ---
[id number] Free Text/Narrative:: 33 year old female who was seen at 1900 hour last night was diagnosed with renal calculus at the left ureteral vesicle junction with subsequent hydroureter. She admits to sharp pelvis pain and back pain, left flankHas a sense of urinary urgency. Nausea without vomiting and a loss of appetite. Has never had kidney stones; had minimal relief with percocet prescribed last night. Has a sense of urinary urgency. A hughes cath has been placed in the ED , the patient request removal. Pyridium will be used for dysuria and frequency. Originally the patient was to have called urologist, Dr Jorge Johnson. This will be arranged at the time of DC. Patient was medicated with PO and IV pain medications overnight, antiemetics. Pain and nausea remain. She wishes transfer to urology services for eval for possible surgical removal of lt renal stone. Call placed to [facility]; spoke to Dr. Goyal, Urologist who is willing to consult for Hospitalist service. Then spoke to Dr. Cat, Hospitalist who will accept patient for direct admission. She will be transferred via ambulance due to IVF infusion, pain control and bradycardia intermittent with pain medication. - Discharge Data Discharge Date: 09/12/16 (admit date 09/13/16) Discharge Disposition: DC/Tfer to Acute Hospital 02 Condition: Good - Discharge Diagnosis/Problem(s) (1) Left ureteral stone SNOMED Code(s): 46854267 ICD Code: N20.1 - CALCULUS OF URETER Status: Acute Priority: High (2) Renal colic on left side SNOMED Code(s): 3595083 ICD Code: N23 - UNSPECIFIED RENAL COLIC Status: Acute Priority: High (3) Moderate dehydration SNOMED Code(s): 2521193727297 ICD Code: E86.0 - DEHYDRATION Status: Resolved Priority: High (4) Vomiting SNOMED Code(s): 354283667 ICD Code: R11.10 - VOMITING, UNSPECIFIED Status: Resolved Priority: High Qualifiers: Vomiting type: unspecified Vomiting Intractability: intractable Nausea presence: with nausea Qualified Code(s): R11.2 - Nausea with vomiting, unspecified (5) Abdominal pain SNOMED Code(s): 72275184 ICD Code: R10.9 - UNSPECIFIED ABDOMINAL PAIN Status: Acute Priority: High Qualifiers: Abdominal location: left lower quadrant Qualified Code(s): R10.32 - Left lower quadrant pain (6) Hydroureter SNOMED Code(s): 94162903 ICD Code: N13.4 - HYDROURETER Status: Acute Priority: High - Patient Summary/Data Operative Procedure(s) Performed: None Complications: None Consults: Consultations 09/11/16 15:05 Consult to Sap Bobj Developer [CONS] Routine Labs Pending at D/C: None Recommended Follow-up Testing/Procedures: Urology consult; transfer to [facility] for further eval/tx Planned Operative Procedure(s) after DC: None- per/pending Urology eval Hospital Course: As above - Patient Instructions Diet: NPO - Discharge Plan Home Medications: Home Meds Ondansetron [Zofran ODT] 4 mg PO Q6H PRN #15 tab.dis 09/10/16 [Rx] oxyCODONE HCl/Acetaminophen [Percocet 5-325 mg Tablet] 1 - 2 each PO Q6H PRN [History] Patient Handouts: Smoking Cessation, Tips for Success, [id number], Smoking Hazards, Kidney Stones, [id number] Forms: ED Department Discharge Referrals: PCP,Not In Area [Primary Care Provider] - - Discharge Summary/Plan Comment DC Time >30 min.: Yes (40 min) - General Info Date of Service: 09/12/16 Admission Dx/Problem (Free Text: Admission Diagnosis/Problem Admission Diagnosis/Problem Renal stone "M[place]" is seen this morning, rested fairly well last night. Pain is "up and down", to left flank radiating around into left pelvic and bladder area, in "spasms". When pain medication starts to wear off is up to 8-9 again. Nausea is improved but returns with pain. She has no appetite. Voiding is improved and "not so urgent" and "less pressure" with voiding. Afebrile overnight. No prior hx of renal stones. Functional Status: Reports: ambulating, urinating - Review of Systems General: Denies: Fever HEENT: Reports: no symptoms Pulmonary: Reports: no symptoms Cardiovascular: Reports: No Symptoms Gastrointestinal: Reports: Abdominal pain (LLQ/pelvis), Nausea, Other (last BM yesterday). Denies: Diarrhea, Vomiting (resolved) Genitourinary: Reports: frequency, urgency, flank pain Musculoskeletal: Reports: back pain (lt flank) Neurological: Reports: No Symptoms Psychiatric: Reports: no symptoms - Patient Data Vitals - Most Recent: Last Vital Signs Temp 98.1 F 09/12/16 07:56 Pulse 65 09/12/16 08:00 Resp 14 09/12/16 07:56 BP 116/76 09/12/16 07:56 Pulse Ox 98 09/12/16 07:56 Weight - Most Recent: 90.492 kg I&O - Last 24 hours: Intake & Output 09/11/16 09/12/16 09/12/16 22:59 06:59 14:59 Intake Total 460 800 Output Total 275 675 Balance 185 125 Lab Results - Last 24 hrs: Laboratory Results - last 24 hr 09/12/16 09/12/16 Range/Units 05:46 05:46 WBC 6.93 (3.98-10.04) K/mm3 RBC 3.66 L (3.98-5.22) M/mm3 Hgb 11.1 L (11.2-15.7) gm/L Hct 35.2 (34.1-44.9) % MCV 96.2 H (79.4-94.8) fl MCH 30.3 (25.6-32.2) pg MCHC 31.5 L (32.2-35.5) g/dl RDW Std Deviation 45.1 (36.4-46.3) fL Plt Count 237 (182-369) K/mm3 MPV 10.0 (9.4-12.3) fl Neut % (Auto) 58.0 (34.0-71.1) % Lymph % (Auto) 27.3 (19.3-51.7) % [place] % (Auto) 12.4 (4.7-12.5) % Eos % (Auto) 1.9 (0.7-5.8) Baso % (Auto) 0.3 (0.1-1.2) % Neut # (Auto) 4.02 (1.56-6.13) K/mm3 Lymph # (Auto) 1.89 (1.18-3.74) K/mm3 [place] # (Auto) 0.86 H (0.24-0.36) K/mm3 Eos # (Auto) 0.13 (0.04-0.36) K/mm3 Baso # (Auto) 0.02 (0.01-0.08) K/mm3 Sodium 142 (136-145) mEq/L Potassium 3.7 (3.5-5.1) mEq/L Chloride 110 H (98-107) mEq/L Carbon Dioxide 23 (21-32) mEq/L Anion Gap 12.7 (5-15) BUN 13 (7-18) mg/dL Creatinine 0.8 (0.55-1.02) mg/dL Est Cr Clr Drug Dosing 95.45 mL/min Estimated GFR (MDRD) > 60 (>60) mL/min BUN/Creatinine Ratio 16.3 (14-18) Glucose 80 (74-106) mg/dL Calcium 8.0 L (8.5-10.1) mg/dL C-Reactive Protein 1.2 H* (<1.0) mg/dL Med Orders - Current: Current Medications Hydrocodone Bitart/Acetaminophen ([place] 325-5 Mg) 1 tab PO Q6H PRN PRN Reason: Pain Last Admin: 09/12/16 09:14 Dose: 1 tab Docusate Sodium (Colace) 100 mg PO BID [facility] Last Admin: 09/12/16 09:04 Dose: 100 mg Enoxaparin Sodium (Lovenox) 40 mg SUBCUT DAILY [facility] Last Admin: 09/12/16 09:04 Dose: 40 mg Promethazine HCl 12.5 mg/ (Sodium Chloride) 50.5 mls @ 100 mls/hr IV Q6H PRN PRN Reason: Nausea/Vomiting Sodium Chloride (Normal Saline) 1,000 mls @ 125 mls/hr IV ASDIRECTED [facility] Last Admin: 09/12/16 10:04 Dose: 125 mls/hr Ketorolac Tromethamine (Toradol) 30 mg IVPUSH Q6H [facility] Stop: 09/12/16 23:01 Last Admin: 09/12/16 10:05 Dose: 30 mg Lorazepam (Ativan) 1 mg IVPUSH Q12H PRN PRN Reason: Anxiety Miscellaneous Information (Remove Patch) 0 ea TRDERM DAILY [facility] Last Admin: 09/12/16 09:05 Dose: Not Given Morphine Sulfate (Morphine) 2 mg IVPUSH Q4H PRN PRN Reason: Pain (moderate 4-6) Last Admin: 09/12/16 02:53 Dose: 2 mg Nicotine (Habitrol) 21 mg TRDERM DAILY [facility] Last Admin: 09/12/16 09:05 Dose: Not Given Ondansetron HCl (Zofran) 4 mg IVPUSH Q8H PRN PRN Reason: Nausea/Vomiting Phenazopyridine HCl (Urinary Pain Relief) 95 mg PO TIDPC [facility] Last Admin: 09/12/16 09:06 Dose: 95 mg Tamsulosin HCl (Flomax) 0.4 mg PO BIDPC [facility] Temazepam (Restoril) 15 mg PO BEDTIME PRN PRN Reason: Insomnia Trimethoprim/Sulfamethoxazole (Septra Ds) 1 tab PO BID [facility] Discontinued Medications Hydromorphone HCl (Dilaudid) 1 mg IVPUSH ONETIME ONE Stop: 09/11/16 10:19 Last Admin: 09/11/16 10:28 Dose: 1 mg Hydromorphone HCl (Dilaudid) 1 mg IVPUSH Q1H PRN PRN Reason: Pain Sodium Chloride (Normal Saline) 1,000 mls @ 1,000 mls/hr IV ONETIME ONE Stop: 09/11/16 11:17 Last Admin: 09/11/16 10:26 Dose: 1,000 mls/hr Sodium Chloride (Normal Saline) 1,000 mls @ 999 mls/hr IV ONETIME ONE Stop: 09/11/16 12:53 Last Admin: 09/11/16 12:05 Dose: 999 mls/hr Ketorolac Tromethamine (Toradol) 30 mg IVPUSH ONETIME ONE Stop: 09/11/16 10:19 Last Admin: 09/11/16 10:27 Dose: 30 mg Lorazepam (Ativan) 1 mg IVPUSH ONETIME ONE Stop: 09/11/16 10:28 Last Admin: 09/11/16 10:34 Dose: 1 mg Ondansetron HCl (Zofran) 4 mg IVPUSH ONETIME ONE Stop: 09/11/16 10:19 Last Admin: 09/11/16 10:26 Dose: 4 mg Pneumococcal Polyvalent Vaccine (Pneumovax 23) 0.5 ml IM .ONCE ONE Stop: 09/11/16 14:39 - Exam Quality Assessment: Reports: DVT prophylaxis General: Reports: alert, oriented, cooperative, no acute distress HEENT: Reports: Pupils equal, Pupils reactive, EOMI, Mucous membr. moist/pink Neck: Reports: supple Lungs: Reports: Clear to auscultation, Normal respiratory effort, Decreased breath sounds (bases; lt flank pain with deep inspiration) Cardiovascular: Reports: Regular Rate, Regular Rhythm Abdomen: Reports: bowel sounds present, soft, no distension, tenderness (Left mid to lower quadrant; pelvis and bladder). Denies: rigidity, rebound, guarding (Female) Exam: Normal External Exam Rectal (Female) Exam: Deferred Back Exam: Reports: CVA Tenderness (L) Extremities: Reports: no edema Neurological: Reports: no new focal deficit Psy/Mental Status: Reports: alert, normal affect, normal mood *Q Meaningful Use (DIS) - VTE *Q VTE Criteria *Q: - Stroke *Q Stroke Criteria *Q: - AMI *Q AMI Criteria *Q: <Dalia Mora - Last Filed: 09/12/16 16:42> Discharge Summary - Hospital Course Free Text/Narrative:: Transfer to [facility]; higher level of care required for renal calculus as outlined. - Discharge Diagnosis/Problem(s) (1) Abdominal pain SNOMED Code(s): 06037317 ICD Code: R10.9 - UNSPECIFIED ABDOMINAL PAIN Status: Acute Priority: High Qualifiers: Abdominal location: left lower quadrant Qualified Code(s): R10.32 - Left lower quadrant pain (2) Moderate dehydration SNOMED Code(s): 4911546433437 ICD Code: E86.0 - DEHYDRATION Status: Resolved Priority: High (3) Ureteral stone SNOMED Code(s): 47926524 ICD Code: N20.1 - CALCULUS OF URETER Status: Acute (4) Vomiting SNOMED Code(s): 158705695 ICD Code: R11.10 - VOMITING, UNSPECIFIED Status: Resolved Priority: High Qualifiers: Vomiting type: unspecified Vomiting Intractability: intractable Nausea presence: with nausea Qualified Code(s): R11.2 - Nausea with vomiting, unspecified (5) Left ureteral stone SNOMED Code(s): 98241170 ICD Code: N20.1 - CALCULUS OF URETER Status: Acute Priority: High (6) Renal colic on left side SNOMED Code(s): 7228443 ICD Code: N23 - UNSPECIFIED RENAL COLIC Status: Acute Priority: High - Patient Summary/Data Consults: Consultations 09/11/16 15:05 Consult to Sap Bobj Developer [CONS] Routine - Patient Data Vitals - Most Recent: Last Vital Signs Temp 36.7 C 09/12/16 07:56 Pulse 51 L 09/12/16 11:36 Resp 14 09/12/16 07:56 BP 125/74 09/12/16 11:36 Pulse Ox 97 09/12/16 11:36 I&O - Last 24 hours: Intake & Output 09/12/16 09/12/16 09/12/16 06:59 14:59 22:59 Intake Total 800 1220 Output Total 675 700 Balance 125 520 Lab Results - Last 24 hrs: Laboratory Results - last 24 hr 09/12/16 09/12/16 Range/Units 05:46 05:46 WBC 6.93 (3.98-10.04) K/mm3 RBC 3.66 L (3.98-5.22) M/mm3 Hgb 11.1 L (11.2-15.7) gm/L Hct 35.2 (34.1-44.9) % MCV 96.2 H (79.4-94.8) fl MCH 30.3 (25.6-32.2) pg MCHC 31.5 L (32.2-35.5) g/dl RDW Std Deviation 45.1 (36.4-46.3) fL Plt Count 237 (182-369) K/mm3 MPV 10.0 (9.4-12.3) fl Neut % (Auto) 58.0 (34.0-71.1) % Lymph % (Auto) 27.3 (19.3-51.7) % [place] % (Auto) 12.4 (4.7-12.5) % Eos % (Auto) 1.9 (0.7-5.8) Baso % (Auto) 0.3 (0.1-1.2) % Neut # (Auto) 4.02 (1.56-6.13) K/mm3 Lymph # (Auto) 1.89 (1.18-3.74) K/mm3 [place] # (Auto) 0.86 H (0.24-0.36) K/mm3 Eos # (Auto) 0.13 (0.04-0.36) K/mm3 Baso # (Auto) 0.02 (0.01-0.08) K/mm3 Sodium 142 (136-145) mEq/L Potassium 3.7 (3.5-5.1) mEq/L Chloride 110 H (98-107) mEq/L Carbon Dioxide 23 (21-32) mEq/L Anion Gap 12.7 (5-15) BUN 13 (7-18) mg/dL Creatinine 0.8 (0.55-1.02) mg/dL Est Cr Clr Drug Dosing 95.45 mL/min Estimated GFR (MDRD) > 60 (>60) mL/min BUN/Creatinine Ratio 16.3 (14-18) Glucose 80 (74-106) mg/dL Calcium 8.0 L (8.5-10.1) mg/dL C-Reactive Protein 1.2 H* (<1.0) mg/dL Med Orders - Current: Current Medications Discontinued Medications Hydrocodone Bitart/Acetaminophen ([place] 325-5 Mg) 1 tab PO Q6H PRN PRN Reason: Pain Last Admin: 09/12/16 09:14 Dose: 1 tab Docusate Sodium (Colace) 100 mg PO BID [facility] Last Admin: 09/12/16 09:04 Dose: 100 mg Enoxaparin Sodium (Lovenox) 40 mg SUBCUT DAILY [facility] Last Admin: 09/12/16 09:04 Dose: 40 mg Hydromorphone HCl (Dilaudid) 1 mg IVPUSH ONETIME ONE Stop: 09/11/16 10:19 Last Admin: 09/11/16 10:28 Dose: 1 mg Hydromorphone HCl (Dilaudid) 1 mg IVPUSH Q1H PRN PRN Reason: Pain Sodium Chloride (Normal Saline) 1,000 mls @ 1,000 mls/hr IV ONETIME ONE Stop: 09/11/16 11:17 Last Admin: 09/11/16 10:26 Dose: 1,000 mls/hr Sodium Chloride (Normal Saline) 1,000 mls @ 999 mls/hr IV ONETIME ONE Stop: 09/11/16 12:53 Last Admin: 09/11/16 12:05 Dose: 999 mls/hr Promethazine HCl 12.5 mg/ (Sodium Chloride) 50.5 mls @ 100 mls/hr IV Q6H PRN PRN Reason: Nausea/Vomiting Sodium Chloride (Normal Saline) 1,000 mls @ 125 mls/hr IV ASDIRECTED [facility] Last Admin: 09/12/16 10:04 Dose: 125 mls/hr Ketorolac Tromethamine (Toradol) 30 mg IVPUSH ONETIME ONE Stop: 09/11/16 10:19 Last Admin: 09/11/16 10:27 Dose: 30 mg Ketorolac Tromethamine (Toradol) 30 mg IVPUSH Q6H [facility] Stop: 09/12/16 23:01 Last Admin: 09/12/16 10:05 Dose: 30 mg Lorazepam (Ativan) 1 mg IVPUSH ONETIME ONE Stop: 09/11/16 10:28 Last Admin: 09/11/16 10:34 Dose: 1 mg Lorazepam (Ativan) 1 mg IVPUSH Q12H PRN PRN Reason: Anxiety Miscellaneous Information (Remove Patch) 0 ea TRDERM DAILY [facility] Last Admin: 09/12/16 09:05 Dose: Not Given Morphine Sulfate (Morphine) 2 mg IVPUSH Q4H PRN PRN Reason: Pain (moderate 4-6) Last Admin: 09/12/16 02:53 Dose: 2 mg Nicotine (Habitrol) 21 mg TRDERM DAILY [facility] Last Admin: 09/12/16 09:05 Dose: Not Given Ondansetron HCl (Zofran) 4 mg IVPUSH ONETIME ONE Stop: 09/11/16 10:19 Last Admin: 09/11/16 10:26 Dose: 4 mg Ondansetron HCl (Zofran) 4 mg IVPUSH Q8H PRN PRN Reason: Nausea/Vomiting Phenazopyridine HCl (Urinary Pain Relief) 95 mg PO TIDPC [facility] Last Admin: 09/12/16 09:06 Dose: 95 mg Pneumococcal Polyvalent Vaccine (Pneumovax 23) 0.5 ml IM .ONCE ONE Stop: 09/11/16 14:39 Last Admin: 09/12/16 11:31 Dose: Not Given [facility]ams[facility]osin [facility] Last Admin: 09/12/16 11:31 Dose: 0.4 mg Temazepam (Restoril) 15 mg PO BEDTIME PRN PRN Reason: Insomnia Trimethoprim/Sulfamethoxazole (Septra Ds) 1 tab PO BID [facility] Last Admin: 09/12/16 11:31 Dose: 1 tab *Q Meaningful Use (DIS) - VTE *Q VTE Criteria *Q: - Stroke *Q Stroke Criteria *Q: - AMI *Q AMI Criteria *Q:
[2016-09-12] MEDS ORDERED: Tamsulosin 0.4 MG Cap.ER PO SCH (11:30)
[2016-09-12 11:41] VITALS: BP 125/74
== END 2016-09-12 11:40 | DRG 465 ==
LOC: JD.ED 09:43 → JD.MS 14:34
PROVIDERS: ADMIT Internal Medicine Cardiovascular Disease; ATTEND Internal Medicine Cardiovascular Disease
DX: N20.1 Calculus of ureter (principal); N13.4 Hydroureter; N23 Unspecified renal colic; E86.0 Dehydration; E66.9 Obesity, unspecified; Z68.30 Body mass index [BMI] 30.0-30.9, adult; G43.909 Migraine, unspecified, not intractable, without status migrainosus; F17.200 Nicotine dependence, unspecified, uncomplicated
CPT/HCPCS: 36415; 51702; 51798; 80048; 80053; 81001; 85025; 86140; 96361; 96374; 96375; 99284; 99285-25; A9270-GY; J1170; J1650; J1885; J2060; J2270; J2405; J7040